=== PATIENT | female | born 1990 | race American Indian/Alaskan Native ===

== ENCOUNTER 2018-06-09 16:13 | Observation (INO) | payer MEDICAID ==
[2018-06-09] MEDS ORDERED: TORADOL IV ONE (16:50)
[2018-06-09] MEDS ORDERED: NACL 0.9% 1000 ML 1,000 ML IV ONE (16:50)
[2018-06-09] MEDS ORDERED: ZOFRAN IV ONE ×2 (16:50→21:07)
--- NOTE | 2018-06-09 16:54 | Emergency Department Report ---
Blank Doc - Documentation Documentation: Patient is a 27-year-old female who had a D&C yesterday secondary to a demise who is presenting with severe abdominal pain. Patient states is 10 out of 10 pain diffusely with pain that radiates into her arms and legs. Patient's is crying and can barely answer questions. Focused physical exam patient is tender diffusely in her abdomen with no rebound or guarding abdomen is so and appeared to be a surgical abdomen. He has a recent surgical procedure urinalysis lab work will be ordered and CT of abdomen and pelvis be done as well. Ft
[2018-06-09 17:43] LABS: Hemoglobin 13.6 gm/dl (10.1-14.3); Mean Corpuscular HGB Conc 35 % (30-34); Mean Corpuscular Hemoglobin 33 pg (28-32); Mean Corpuscular Volume 94 fl (79-97); Platelet Count 258 K/mm3 (140-440); Red Blood Count 4.14 M/mm3 (3.65-5.03); Red Cell Distribution Width 14.9 % (13.2-15.2)
[2018-06-09 17:53] LABS: BUN/Creatinine Ratio 18; Blood Urea Nitrogen 9 mg/dL (7-17); Calcium 9.5 mg/dL (8.4-10.2); Hemolysis Index 81
[2018-06-09 18:36] LABS: Band Neutrophils # (Manual) 0.3 K/mm3; Basophils % (Manual) 0 % (0.0-1.8); Total Cells Counted 100
[2018-06-09 18:38] LABS: Anisocytosis 1+; Large Platelets Few; Macrocytosis 1+; Ovalocytes Few; Platelet Estimate Consistent w Auto; Poikilocytosis 1+; Target Cells Few
--- NOTE | 2018-06-09 18:56 | Cat Scan Report ---
FINAL REPORT PROCEDURE: CT ABDOMEN PELVIS W CON TECHNIQUE: Computerized axial tomography of the abdomen and pelvis was performed after the IV injection of iodinated nonionic contrast. HISTORY: recent d c pain all over COMPARISON: No prior studies are available for comparison. FINDINGS: Lower Lung lora: Minimal dependent atelectasis visualize otherwise lung bases are clear.. Upper Abdomen: There appears to be a small fold in the fundus of the gallbladder. Gallbladder is otherwise unremarkable. The liver, the adrenal glands, the pancreas and the spleen are unremarkable. Kidneys, Ureters and Urinary bladder: No abnormalities are seen. Retroperitoneum: Abdominal aorta appears normal. Nonspecific subcentimeter lymph nodes are seen in the retroperitoneum. No pathologically enlarged lymph nodes are identified. Bowel: There appears to be mild mucosal thickening and mild prominence of the submucosal space in the transverse colon, the splenic flexure and mildly in the descending colon as well as in the right side of the colon. I cannot exclude a mild nonspecific colitis. There are few loops of small bowel seen in the right lower quadrant which also show mild mucosal mucosal thickening and mild prominence of the submucosal space. Normal-appearing appendix is seen in the right lower quadrant. No evidence of bowel obstruction. There is no ascites or free intraperitoneal gas. There is a small umbilical hernia containing adipose tissue. No herniated loops of bowel are seen. Reproductive organs: The uterus appears prominent or mildly enlarged. This may be from recent . If there is concern for retained products of conception ultrasound be recommended. No abnormal adnexal masses are seen. Other: No acute bony abnormalities are seen. There is sclerosis of the ilium adjacent to the SI joint suggesting osteitis condensans iliac. IMPRESSION: Uterus is mildly prominent or mildly enlarged which may be due to recent . If there is concern for retained products of conception ultrasound would be recommended. Mild mucosal and submucosal prominence seen in the right and left side of the colon and transverse colon. I cannot exclude a mild nonspecific colitis. There is also mild prominence of the mucosal and submucosal spaces in loops of small bowel in the right side of the abdomen. I cannot exclude additional mild nonspecific enteritis. No evidence of bowel obstruction or ascites. Bowel loops otherwise are unremarkable.
[2018-06-09 19:57] LABS: Bacteria,Urine 1+ /HPF (Negative); Bilirubin,Urine NEG (Negative); Blood,Urine LG (Negative); Color,Urine Yellow (Yellow); Mucus,Urine FEW /HPF; Protein,Urine <15 mg/dL mg/dL (Negative); Urobilinogen,Urine < 2.0 mg/dL (<2.0)
[2018-06-09] MEDS ORDERED: ZOSYN/NS 3.375GM/50ML 3.375 GM/50 ML BAG IV SCH (21:00)
[2018-06-09] MEDS ORDERED: MORPHINE IV ONE (21:07)
--- NOTE | 2018-06-09 21:07 | Emergency Department Report ---
ED General Adult HPI - General Chief complaint: Pain General Stated complaint: STOMACH PAIN/BODY Time Seen by Provider: 06/09/18 16:45 Source: patient Mode of arrival: Ambulatory Limitations: No Limitations - History of Present Illness Initial comments: 27-year-old -[place] female comes to the emergency room reporting that she is having body aches. Patient reports that she had a DNC on Monday and now states "patient's my whole body hurts including my throat." Patient reports that she had demise and was sent home went back to the hospital at [facility] and had a D&C performed. Patient reports that she was discharged with no pain medication and woke up this morning in severe pain. Patient also complains of sore throat that really hurts. Patient reports a past medical history of asthma and had 3 miscarriages. -: days(s) (1) Location: neck (throat), abdomen, pelvis Severity scale (0 -10): 7 Consistency: constant Worsens with: eating, other (following) Associated Symptoms: loss of appetite, nausea/vomiting, other (sore throat, mid to upper abdominal pain). denies: fever/chills Treatments Prior to Arrival: none - Related Data Previous Rx's Medication Instructions Recorded Last Taken Type HYDROcodone/APAP 5-325 [[place] 1 - 2 each PO Q6HR PRN #14 tablet 01/19/14 Unknown Rx 5/325 mg] Ondansetron [Zofran] 4 mg PO Q6HR PRN #12 tablet 01/19/14 Unknown Rx Famotidine [Pepcid] 20 mg PO BID #60 tablet 04/28/14 Unknown Rx Ondansetron [Zofran] 4 mg PO Q6HR PRN #30 tablet 04/28/14 Unknown Rx Vit/Iron Fum/Folic AC 1 each PO QDAY #90 tablet 04/28/14 Unknown Rx [ Vitamin Tablet] metroNIDAZOLE 0.75%(NF) [Metrogel 1 applicatio TP BID #10 tube 04/28/14 Unknown Rx 0.75%] Acetaminophen/Codeine [Tylenol #3] 1 tab PO Q6H PRN #15 tab 08/22/15 Unknown Rx Tobramycin/Dexamethasone [Tobradex 1 - 2 drop OP Q4HR #1 bottle 08/22/15 Unknown Rx Eye Drops 0.3/0.1%] Acetaminophen/Codeine [Tylenol #3] 1 tab PO Q6H PRN #20 tab 11/12/15 Unknown Rx Nitrofurantoin [place]/M-Cryst 100 mg PO Q12HR #14 capsule 11/12/15 Unknown Rx [Macrobid CAP] Allergies Allergy/AdvReac Type Severity Reaction Status Date / Time Fish Containing Products Allergy Itching Verified 06/09/18 16:15 peanut Allergy Itching Verified 06/09/18 16:15 coconut Allergy Itching Uncoded 08/22/15 16:32 ED Review of Systems ROS: Stated complaint: STOMACH PAIN/BODY Other details as noted in HPI Constitutional: denies: chills, fever ENT: throat pain Respiratory: denies: cough, shortness of breath, wheezing Cardiovascular: denies: chest pain, palpitations Endocrine: no symptoms reported Gastrointestinal: abdominal pain, nausea Genitourinary: denies: urgency, dysuria, discharge Musculoskeletal: back pain Skin: denies: rash, lesions Neurological: headache. denies: weakness, paresthesias Psychiatric: denies: anxiety, depression Hematological/Lymphatic: denies: easy bleeding, easy bruising ED Past Medical Hx - Past Medical History Hx Asthma: Yes Additional medical history: 3 miscarriages - Social History Smoking Status: Current Every Day Smoker Substance Use Type: None - Medications Home Medications: Home Medications Medication Instructions Recorded Confirmed Last Taken Type HYDROcodone/APAP 5-325 [[place] 1 - 2 each PO Q6HR PRN #14 tablet 01/19/14 Unknown Rx 5/325 mg] Ondansetron [Zofran] 4 mg PO Q6HR PRN #12 tablet 01/19/14 Unknown Rx Famotidine [Pepcid] 20 mg PO BID #60 tablet 04/28/14 Unknown Rx Ondansetron [Zofran] 4 mg PO Q6HR PRN #30 tablet 04/28/14 Unknown Rx Vit/Iron Fum/Folic AC 1 each PO QDAY #90 tablet 04/28/14 Unknown Rx [ Vitamin Tablet] metroNIDAZOLE 0.75%(NF) [Metrogel 1 applicatio TP BID #10 tube 04/28/14 Unknown Rx 0.75%] Acetaminophen/Codeine [Tylenol #3] 1 tab PO Q6H PRN #15 tab 08/22/15 Unknown Rx Tobramycin/Dexamethasone [Tobradex 1 - 2 drop OP Q4HR #1 bottle 08/22/15 Unknown Rx Eye Drops 0.3/0.1%] Acetaminophen/Codeine [Tylenol #3] 1 tab PO Q6H PRN #20 tab 11/12/15 Unknown Rx Nitrofurantoin [place]/M-Cryst 100 mg PO Q12HR #14 capsule 11/12/15 Unknown Rx [Macrobid CAP] ED Physical Exam - General Limitations: No Limitations General appearance: alert, in no apparent distress, other (Gonzalez to be uncomfortable) - Head Head exam: Present: atraumatic, normocephalic - Eye Eye exam: Present: EOMI - ENT ENT exam: Present: mucous membranes moist - Neck Neck exam: Present: normal inspection, full ROM - Respiratory Respiratory exam: Present: normal lung sounds bilaterally. Absent: respiratory distress - Cardiovascular Cardiovascular Exam: Present: regular rate, normal rhythm. Absent: systolic murmur, diastolic murmur, rubs, gallop - GI/Abdominal GI/Abdominal exam: Present: soft, tenderness, normal bowel sounds. Absent: distended - Extremities Exam Extremities exam: Present: normal inspection - Neurological Exam Neurological exam: Present: alert, oriented X3 - Psychiatric Psychiatric exam: Present: normal affect, normal mood - Skin Skin exam: Present: warm, dry, intact, normal color. Absent: rash ED Course Vital Signs 06/09/18 06/09/18 06/09/18 16:17 16:52 20:10 Temperature 98.9 F 98.7 F Pulse Rate 76 Respiratory 22 18 Rate Blood Pressure 141/76 Blood Pressure [Left] O2 Sat by Pulse Oximetry 06/09/18 06/09/18 06/10/18 21:54 23:37 01:41 Temperature 97.8 F Pulse Rate 72 Respiratory 16 18 18 Rate Blood Pressure Blood Pressure 142/72 [Left] O2 Sat by Pulse 97 Oximetry 06/10/18 03:00 Temperature 98.4 F Pulse Rate 64 Respiratory 16 Rate Blood Pressure Blood Pressure 124/72 [Left] O2 Sat by Pulse 99 Oximetry ED Medical Decision Making - Lab Data Result diagrams: 06/09/18 17:19 06/09/18 17:19 - Radiology Data Radiology results: report reviewed, image reviewed FINAL REPORT PROCEDURE: CT ABDOMEN PELVIS W CON TECHNIQUE: Computerized axial tomography of the abdomen and pelvis was performed after the IV injection of iodinated nonionic contrast. HISTORY: recent d c pain all over COMPARISON: No prior studies are available for comparison. FINDINGS: Lower Lung lora: Minimal dependent atelectasis visualize otherwise lung bases are clear.. Upper Abdomen: There appears to be a small fold in the fundus of the gallbladder. Gallbladder is otherwise unremarkable. The liver, the adrenal glands, the pancreas and the spleen are unremarkable. Kidneys, Ureters and Urinary bladder: No abnormalities are seen. Retroperitoneum: Abdominal aorta appears normal. Nonspecific subcentimeter lymph nodes are seen in the retroperitoneum. No pathologically enlarged lymph nodes are identified. Bowel: There appears to be mild mucosal thickening and mild prominence of the submucosal space in the transverse colon, the splenic flexure and mildly in the descending colon as well as in the right side of the colon. I cannot exclude a mild nonspecific colitis. There are few loops of small bowel seen in the right lower quadrant which also show mild mucosal mucosal thickening and mild prominence of the submucosal space. Normal-appearing appendix is seen in the right lower quadrant. No evidence of bowel obstruction. There is no ascites or free intraperitoneal gas. There is a small umbilical hernia containing adipose tissue. No herniated loops of bowel are seen. Reproductive organs: The uterus appears prominent or mildly enlarged. This may be from recent . If there is concern for retained products of conception ultrasound be recommended. No abnormal adnexal masses are seen. Other: No acute bony abnormalities are seen. There is sclerosis of the ilium adjacent to the SI joint suggesting osteitis condensans iliac. IMPRESSION: Uterus is mildly prominent or mildly enlarged which may be due to recent . If there is concern for retained products of conception ultrasound would be recommended. Mild mucosal and submucosal prominence seen in the right and left side of the colon and transverse colon. I cannot exclude a mild nonspecific colitis. There is also mild prominence of the mucosal and submucosal spaces in loops of small bowel in the right side of the abdomen. I cannot exclude additional mild nonspecific enteritis. No evidence of bowel obstruction or ascites. Bowel loops otherwise are unremarkable. Transcribed By: CLAUDE Dictated By: SUKHI ATKINS MD Electronically Authenticated By: SUKHI ATKINS MD Signed Date/Time: 06/09/181847 DD/ 47 TD/TT: 06/09/181847 - Medical Decision Making Patient has been evaluated by this provider fast track as well as Dr. Prieto. Patient has had IV fluids and IV antibiotics and IV pain medication and IV anti- emetics. Patient's had a CT abdomen and vaginal ultrasound Patient has been given Zosyn 3.337 mg IV. Request for hospice to evaluate for admission. Patient's been admitted. Critical care attestation.: If time is entered above; I have spent that time in minutes in the direct care of this critically ill patient, excluding procedure time. ED Disposition Clinical Impression: Colitis Abdominal pain Qualifiers: Abdominal location: upper abdomen, unspecified Qualified Code(s): R10.10 - Upper abdominal pain, unspecified Disposition: DC-09 OP ADMIT IP TO THIS HOSP Is pt being admited?: Yes Does the pt Need Aspirin: No Condition: Stable
--- NOTE | 2018-06-09 23:43 | Ultrasound Report ---
FINAL REPORT PROCEDURE: US OB < = 14 WEEKS FETUS TECHNIQUE: Real-time transabdominal sonography of the uterus, placenta, amniotic fluid, adnexa, and fetus was performed with image documentation. Measurements were obtained to determine age/size. M-mode Doppler was used to document heartbeat. CPT 28839 HISTORY: recent D C with abdominal pains. Positive test COMPARISON: Transvaginal pelvic ultrasound also performed today. FINDINGS: The report for this exam was generated utilizing images from both the transabdominal and a transvaginal ultrasound both of which were performed today. The endometrial stripe is thickened measuring up to 18.7 millimeters. There is slight heterogeneous echogenicity in the endometrial canal however I do not see evidence of an intrauterine . No uterine masses are identified. The uterus measures 10.7 x 5.1 x 7.5 centimeter. Right and left ovaries are unremarkable. No abnormal adnexal masses are seen. Right ovary measures 3.0 x 1.5 x 1.6 centimeter. The left ovary measures 2.5 x 1.0 x 1.9 centimeters. IMPRESSION: Significantly thickened endometrial stripe. There is mild heterogeneous echogenicity in the central aspect of the stripe although I do not see evidence of an intrauterine . No uterine masses are seen. The ovaries are unremarkable. Recommend correlating this finding with serial beta HCG levels and follow-up pelvic ultrasound if clinically indicated. Given the positive test and lack of an intrauterine I cannot exclude ectopic at this time.
--- NOTE | 2018-06-09 23:46 | Ultrasound Report ---
FINAL REPORT PROCEDURE: US OB TRANSVAGINAL TECHNIQUE: Real-time transvaginal sonography of the uterus, placenta, amniotic fluid, adnexa, and fetus was performed with image documentation. Measurements were obtained to determine age/size. M-mode Doppler was used to document heartbeat. CPT 79108 HISTORY: recent D C with abdominal pains. Positive urine test COMPARISON: Transabdominal OB ultrasound performed earlier today. FINDINGS: The report for this exam was generated utilizing images from both the transabdominal and a transvaginal ultrasound both of which were performed today. The endometrial stripe is thickened measuring up to 18.7 millimeters. There is slight heterogeneous echogenicity in the endometrial canal however I do not see evidence of an intrauterine . No uterine masses are identified. The uterus measures 10.7 x 5.1 x 7.5 centimeter. Right and left ovaries are unremarkable. No abnormal adnexal masses are seen. Right ovary measures 3.0 x 1.5 x 1.6 centimeter. The left ovary measures 2.5 x 1.0 x 1.9 centimeters. IMPRESSION: Significantly thickened endometrial stripe. There is mild heterogeneous echogenicity in the central aspect of the stripe although I do not see evidence of an intrauterine . No uterine masses are seen. The ovaries are unremarkable. Recommend correlating this finding with serial beta HCG levels and follow-up pelvic ultrasound if clinically indicated. Given the positive test and lack of an intrauterine I cannot exclude ectopic at this time.
[2018-06-10] MEDS ORDERED: MORPHINE IV ONE (01:31)
[2018-06-10] MEDS ORDERED: SODIUM CHLORIDE FLUSH SYRINGE 10 ML IV PRN (03:38)
[2018-06-10] MEDS ORDERED: TYLENOL PO PRN (03:38)
--- NOTE | 2018-06-10 03:38 | History and Physical Report ---
History of Present Illness Date of examination: 06/10/18 History of present illness: 27-year-old and history of depression, asthma, anxiety, recently diagnosed with cervical cancer comes to the emergency room complaining of pain all over her body, and worsening abdominal area. She woke up this morning with these symptoms. Status post D&C yesterday. Abdominal pain is in the last side which she describes as painful, constant, intensity 6/10 on radiation, cannot identify exacerbating factor, relieved with pain medication given him Review of systems Constitutional: no weight loss, chills, fever Ears, eyes, nose, mouth and throat: no nasal congestion, no nasal discharge, no sinus pressure, no vision change, no red eye. Neck: No neck pain or rigidity. Cardiovascular: no chest pain, palpitations Respiratory: no cough, shortness of breath Gastrointestinal: no hematochezia Genitourinary : no frequency , no hematuria Musculoskeletal: no joint swelling or muscle ache Integumentary: no rash, no pruritis Neurological: no parathesias, no numbness, no focal weakness Endocrine: no cold or heat intolerance, no polyuria or polydipsia Hematologic/Lymphatic: no easy bruising, no easy bleeding, no gland swelling Allergic/Immunologic: no urticaria, no angioedema. PAST MEDICAL HISTORY: depression, asthma, anxiety, cervical cancer PAST SURGICAL HISTORY: None SOCIAL HISTORY: No alcohol, no drugs, smokes cigarettes, marijuana FAMILY HISTORY: Hypertension Medications and Allergies Allergies Allergy/AdvReac Type Severity Reaction Status Date / Time Fish Containing Products Allergy Itching Verified 06/09/18 16:15 peanut Allergy Itching Verified 06/09/18 16:15 coconut Allergy Itching Uncoded 08/22/15 16:32 Home Medications Medication Instructions Recorded Confirmed Last Taken Type Ondansetron [Zofran] 4 mg PO Q6HR PRN #30 tablet 04/28/14 Unknown Rx Acetaminophen/Codeine [Tylenol 1 tab PO Q6H PRN #15 tab 08/22/15 Unknown Rx /Codeine # 3 tab] Tobramycin/Dexamethasone [Tobradex 1 - 2 drop OP Q4HR #1 bottle 08/22/15 Unknown Rx Eye Drops 0.3/0.1%] Acetaminophen/Codeine [Tylenol #3] 1 tab PO Q6H PRN #20 tab 11/12/15 Unknown Rx Famotidine [Pepcid] 20 mg PO BID #60 tablet 06/11/18 Unknown Rx HYDROcodone/APAP 5-325 [[place] 1 - 2 each PO Q6HR PRN #14 tablet 06/11/18 Unknown Rx 5-325 mg TAB] guaiFENesin/CODEINE [Robitussin AC] 5 ml PO Q6H PRN #100 ml 06/11/18 Unknown Rx Active Meds: Active Medications Piperacillin Sod/Tazobactam Sod (Zosyn/Ns 3.375gm/50ml) 3.375 gm in 50 mls @ 100 mls/hr IV Q6H FABRICE Last Admin: 06/09/18 21:53 Dose: 100 mls/hr Exam - Physical Exam Narrative exam: Gen. appearance: Patient lying in bed, no apparent distress HEENT: Normocephalic, atraumatic, pupils equally round and reactive to light, extraocular movement intact, and no sclericterus,. No JVD or thyromegaly or nodule,neck supple, no carotid bruit ,mucous membranes moist, no exudate or erythema Heart: S1, S2, regular rate and rhythm Lungs: Clear bilaterally, breathing comfortable Abdomen: Positive bowel sounds, tende on the left side, no rebound or guarding r , nondistended, no organomegaly Extremity:no edema cyanosis, clubbing Skin: no rash, dry, warm Neuro: Oriented 3, cranial nerves II-12 intact, speech is fluent, motor and sensory intact - Constitutional Vitals: Temp Pulse Resp BP Pulse Ox 97.8 F 72 18 142/72 97 06/09/18 23:37 06/09/18 23:37 06/10/18 01:41 06/09/18 23:37 06/09/18 23:37 Results - Labs CBC & Chem 7: 06/11/18 03:47 06/11/18 03:47 Labs: Abnormal lab results 06/09/18 06/09/18 06/09/18 Range/Units 17:19 17:19 19:33 WBC 12.7 H (4.5-11.0) K/mm3 MCH 33 H (28-32) pg MCHC 35 H (30-34) % Lymphocytes % (Manual) 40.0 H (13.4-35.0) % Carbon Dioxide 21 L (22-30) mmol/L Creatinine 0.5 L (0.7-1.2) mg/dL HCG, Quant (0-4) mIU/mL Ur Specific [place] 1.047 H (1.003-1.030) 06/09/18 Range/Units 22:28 WBC (4.5-11.0) K/mm3 MCH (28-32) pg MCHC (30-34) % Lymphocytes % (Manual) (13.4-35.0) % Carbon Dioxide (22-30) mmol/L Creatinine (0.7-1.2) mg/dL HCG, Quant 1863 H (0-4) mIU/mL Ur Specific [place] (1.003-1.030) - Imaging and Cardiology CT scan - abdomen: report reviewed CT scan - pelvis: report reviewed Assessment and Plan Assessment Abdominal pain, possible colitis although symptoms does not correlate Recent D&C Depression Anxiety Asthma Plan Admit to medicine Start IV fluid, IV morphine, IV Zosyn [employer] is scheduled to see the patient, DVT prophylaxis
[2018-06-10] MEDS: NACL 0.9% 1000 ML 1,000 ML IV SCH ×2 (06:37→19:55)
[2018-06-10] MEDS: ZOSYN/NS 3.375GM/50ML 3.375 GM/50 ML BAG IV SCH ×3 (06:39→19:01)
[2018-06-10] MEDS: MORPHINE IV PRN ×2 (07:09→12:34)
[2018-06-10] MEDS: LOVENOX SUB-Q SCH (09:22)
[2018-06-10] MEDS ORDERED: PERCOCET 5/325 PO PRN (11:42)
--- NOTE | 2018-06-10 12:30 | Event Note ---
Date: 06/10/18 27-year-old -[place] female was admitted this morning after she was presented to the emergency department with generalized body pain. Patient had recent D&C done. Patient denied fever. Patient complains more of epigastric pain. CT abdomen and pelvis showed slightly enlarged uterus. [facility] [employer] consulted. Patient is on IV antibiotic, pain control. Continue management per H&P.
[2018-06-10] MEDS: PROTONIX PO SCH (12:35)
[2018-06-10] MEDS: ZOFRAN IV PRN (12:35)
[2018-06-10] MEDS: SODIUM CHLORIDE FLUSH SYRINGE 10 ML IV SCH ×2 (12:42→22:11)
--- NOTE | 2018-06-10 14:14 | Consultation ---
History of Present Illness Consult date: 06/10/18 Requesting physician: MASOOD GRAVES Reason for consult: other (status post recent spontaneous with D&C) History of present illness: This is a 27-year-old black female para [id number]. Status post D&C for spontaneous at 9 weeks 5 days on 06/08/2018. Patient states she had been diagnosed approximately 1 week ago with a spontaneous . Patient states she had to be hospitalized due to anxiety attack at [facility] and spent 4 days there prior to undergoing D&C. Patient stayed that on yesterday she woke up complaining of sore throat and whole body aches. She denied any heavy vaginal bleeding. Workup in the emergency room included a day abdominal pelvic CT scan does reveal no evidence of possible uterine perforation like free air or evidence of abnormality of the pelvic organs. Pelvic ultrasound also revealed no abnormalities patient had slightly thickened endometrial consistent with the recent and no evidence of retained products of conception. Patient now without any significant vaginal bleeding and soft abdomen on exam. Patient also states she has cervical cancer but has no recollection of ever having a biopsy of her cervix and her history is more compatible with having an abnormal Pap smear during a previous prior to the one she had a D&C for 1 06/08/2018, which she has not followed up with biopsy which is needed to make a diagnosis. T Past History Past Medical History: asthma, other (depression, anxiety and bronchitis) Past Surgical History: D&C CLOTHES MODEL History: abnormal PAP smear Medications and Allergies Allergies Allergy/AdvReac Type Severity Reaction Status Date / Time Fish Containing Products Allergy Itching Verified 06/09/18 16:15 peanut Allergy Itching Verified 06/09/18 16:15 coconut Allergy Itching Uncoded 08/22/15 16:32 Home Medications Medication Instructions Recorded Confirmed Last Taken Type HYDROcodone/APAP 5-325 [[place] 1 - 2 each PO Q6HR PRN #14 tablet 01/19/14 Unknown Rx 5/325 mg] Ondansetron [Zofran] 4 mg PO Q6HR PRN #12 tablet 01/19/14 Unknown Rx Famotidine [Pepcid] 20 mg PO BID #60 tablet 04/28/14 Unknown Rx Ondansetron [Zofran] 4 mg PO Q6HR PRN #30 tablet 04/28/14 Unknown Rx Vit/Iron Fum/Folic AC 1 each PO QDAY #90 tablet 04/28/14 Unknown Rx [ Vitamin Tablet] metroNIDAZOLE 0.75%(NF) [Metrogel 1 applicatio TP BID #10 tube 04/28/14 Unknown Rx 0.75%] Acetaminophen/Codeine [Tylenol #3] 1 tab PO Q6H PRN #15 tab 08/22/15 Unknown Rx Tobramycin/Dexamethasone [Tobradex 1 - 2 drop OP Q4HR #1 bottle 08/22/15 Unknown Rx Eye Drops 0.3/0.1%] Acetaminophen/Codeine [Tylenol #3] 1 tab PO Q6H PRN #20 tab 11/12/15 Unknown Rx Nitrofurantoin [place]/M-Cryst 100 mg PO Q12HR #14 capsule 11/12/15 Unknown Rx [Macrobid CAP] Active Meds: Active Medications Acetaminophen (Tylenol) 650 mg PO Q4H PRN PRN Reason: Pain MILD(1-3)/Fever >100.5/MUNGUIA Enoxaparin Sodium (Lovenox) 40 mg SUB-Q QDAY [facility] Last Admin: 06/10/18 09:22 Dose: 40 mg Sodium Chloride (Nacl 0.9% 1000 Ml) 1,000 mls @ 75 mls/hr IV DIRECT [facility] Last Admin: 06/10/18 06:37 Dose: 75 mls/hr Piperacillin Sod/Tazobactam Sod (Zosyn/Ns 3.375gm/50ml) 3.375 gm in 50 mls @ 100 mls/hr IV Q6HR [facility] Last Admin: 06/10/18 12:34 Dose: 100 mls/hr Morphine Sulfate (Morphine) 2 mg IV Q4H PRN PRN Reason: Pain, Moderate (4-6) Last Admin: 06/10/18 12:34 Dose: 2 mg Ondansetron HCl (Zofran) 4 mg IV Q4H PRN PRN Reason: Nausea And Vomiting Last Admin: 06/10/18 12:35 Dose: 4 mg Oxycodone/Acetaminophen (Percocet 5/325) 2 tab PO Q6H PRN PRN Reason: Pain, Moderate (4-6) Pantoprazole Sodium (Protonix) 40 mg PO QDAY [facility] Last Admin: 06/10/18 12:35 Dose: 40 mg Sodium Chloride (Sodium Chloride Flush Syringe 10 Ml) 10 ml IV BID [facility] Last Admin: 06/10/18 12:42 Dose: 10 ml Sodium Chloride (Sodium Chloride Flush Syringe 10 Ml) 10 ml IV PRN PRN PRN Reason: LINE FLUSH Review of Systems Respiratory: cough Breasts: deferred Gastrointestinal: abdominal pain Genitourinary: no vaginal bleeding, no vaginal discharge - Vital Signs Vital signs: Vital Signs Temp Pulse Resp BP 98.9 F 76 22 141/76 06/09/18 16:17 06/09/18 16:17 06/09/18 16:17 06/09/18 16:17 Temp Pulse Resp BP Pulse Ox 98.3 F 57 L 20 95/62 96 06/10/18 11:53 06/10/18 05:38 06/10/18 11:53 06/10/18 11:53 06/10/18 09:51 - Physical Exam Abdomen: Positive: normal appearance, soft, tenderness, normal bowel sounds. Negative: distention, guarding Results Result Diagrams: 06/09/18 17:19 06/09/18 17:19 Abnormal lab results 06/09/18 06/09/18 06/09/18 Range/Units 17:19 17:19 19:33 WBC 12.7 H (4.5-11.0) K/mm3 MCH 33 H (28-32) pg MCHC 35 H (30-34) % Lymphocytes % (Manual) 40.0 H (13.4-35.0) % Carbon Dioxide 21 L (22-30) mmol/L Creatinine 0.5 L (0.7-1.2) mg/dL HCG, Quant (0-4) mIU/mL Ur Specific Commerce 1.047 H (1.003-1.030) 06/09/18 Range/Units 22:28 WBC (4.5-11.0) K/mm3 MCH (28-32) pg MCHC (30-34) % Lymphocytes % (Manual) (13.4-35.0) % Carbon Dioxide (22-30) mmol/L Creatinine (0.7-1.2) mg/dL HCG, Quant 1863 H (0-4) mIU/mL Ur Specific Commerce (1.003-1.030) All other labs normal. Assessment and Plan - Patient Problems (1) Anxiety Current Visit: Yes Status: Chronic Plan to address problem: Patiently recently hospitalized she says 4 days for an anxiety attack. Her symptoms on admission may be compatible with anxiety, her workup appears negative for complications of D&C or recent miscarriage. (2) Depression Current Visit: Yes Status: Chronic Plan to address problem: As per #1 we'll recommend psychiatric consult. (3) Abnormal Pap smear of cervix Current Visit: Yes Status: Acute Qualifiers: Abnormal Pap type: unspecified Qualified Code(s): R87.619 - Unspecified abnormal cytological findings in specimens from cervix uteri Plan to address problem: Patient is to follow-up as outpatient [facility]. Office information was given to patient but currently we are not accepting new patients with her insurance. (4) Abdominal pain Current Visit: Yes Status: Acute Qualifiers: Abdominal location: upper abdomen, unspecified Qualified Code(s): R10.10 - Upper abdominal pain, unspecified (5) History of spontaneous Current Visit: Yes Status: Acute Plan to address problem: No evidence of complications from previous spontaneous . No evidence of retained products. (6) Status post D&C Current Visit: Yes Status: Acute Plan to address problem: Patient without evidence of complications from a surgery. No evidence of free air and abdomen that will be seen with perforation of her uterus. No evidence of retained products. Patient without any vaginal bleeding that would be compatible with complications of the surgery. Thank you for this consultation. Will sign off on this patient please contact as her further advice as needed. I did page Dr. Graves to give report awaiting a return call
[2018-06-10 15:10] LABS: Basophils % (Auto) 0.2 % (0.0-1.8); Eosinophils # (Auto) 0.2 K/mm3 (0.0-0.4); Eosinophils % (Auto) 1.5 % (0.0-4.3); Hematocrit 40.9 % (30.3-42.9); Hemoglobin 13.7 gm/dl (10.1-14.3); Lymphocytes # (Auto) 3.9 K/mm3 (1.2-5.4); Lymphocytes % (Auto) 38.9 % (13.4-35.0); Mean Corpuscular HGB Conc 34 % (30-34); Mean Corpuscular Hemoglobin 32 pg (28-32); Mean Corpuscular Volume 96 fl (79-97); Monocytes # (Auto) 0.7 K/mm3 (0.0-0.8); Monocytes % (Auto) 7.5 % (0.0-7.3); Platelet Count 248 K/mm3 (140-440); Red Blood Count 4.28 M/mm3 (3.65-5.03); Red Cell Distribution Width 14.8 % (13.2-15.2)
[2018-06-10 15:25] LABS: BUN/Creatinine Ratio 13; Blood Urea Nitrogen 10 mg/dL (7-17); Calcium 8.7 mg/dL (8.4-10.2); Hemolysis Index 1
[2018-06-11] MEDS: ZOSYN/NS 3.375GM/50ML 3.375 GM/50 ML BAG IV SCH ×3 (00:27→11:49)
[2018-06-11 04:52] LABS: Hematocrit 36.2 % (30.3-42.9); Hemoglobin 12.2 gm/dl (10.1-14.3); Mean Corpuscular HGB Conc 34 % (30-34); Mean Corpuscular Hemoglobin 32 pg (28-32); Mean Corpuscular Volume 96 fl (79-97); Platelet Count 225 K/mm3 (140-440); Red Blood Count 3.79 M/mm3 (3.65-5.03)
[2018-06-11 05:07] LABS: BUN/Creatinine Ratio 14; Blood Urea Nitrogen 10 mg/dL (7-17); Calcium 8.2 mg/dL (8.4-10.2); Hemolysis Index 16
[2018-06-11 05:20] LABS: Basophils % (Manual) 0 % (0.0-1.8); Eosinophils % (Manual) 0 % (0.0-4.3); Total Cells Counted 100
[2018-06-11 05:21] LABS: Platelet Estimate Consistent w Auto
[2018-06-11] MEDS: NACL 0.9% 1000 ML 1,000 ML IV SCH (08:50)
[2018-06-11] MEDS: MORPHINE IV PRN (08:51)
[2018-06-11] MEDS: LOVENOX SUB-Q SCH (09:42)
[2018-06-11] MEDS: ZOFRAN IV PRN (09:42)
[2018-06-11] MEDS: PROTONIX PO SCH (09:42)
[2018-06-11] MEDS: SODIUM CHLORIDE FLUSH SYRINGE 10 ML IV SCH (09:42)
[2018-06-11 11:52] VITALS: BP 106/67
--- NOTE | 2018-06-11 12:10 | Discharge Summary ---
Providers - Providers Date of Admission: 06/10/18 03:38 Attending physician: MASOOD GRAVES MD 06/10/18 03:04 Consult to Physician [CONS] Stat Comment: recent D&C continual abdominal pain Consulting Provider: TEODORO DUARTE Physician Instructions: please consult Reason For Exam: abdominal pain recent D&C 06/11/18 07:52 Consult to Mental Health [CONS] Routine Reason For Exam: Panic attack, anxiety Place consult to:: mental health Notified:: Phone number called:: [phone] Was contact made?: Yes If yes, spoke with:: patrick Time called:: 08:18 Primary care physician: WOODEN TANK ERECTOR Hospitalization Reason for admission: Generalized pain Condition: Stable Pertinent studies: Transvaginal U/S, U/S: Significantly thickened endometrial stripe. There is mild heterogeneous echogenicity in the central aspect of the stripe although I do not see evidence of an intrauterine . No uterine masses are seen. The ovaries are unremarkable. Recommend correlating this finding with serial beta HCG levels and follow-up pelvic ultrasound if clinically indicated. Given the positive test and lack of an intrauterine I cannot exclude ectopic at this time. CT abdomen and Pelvis: Uterus is mildly prominent or mildly enlarged which may be due to recent . If there is concern for retained products of conception ultrasound would be recommended. Mild mucosal and submucosal prominence seen in the right and left side of the colon and transverse colon. I cannot exclude a mild nonspecific colitis. There is also mild prominence of the mucosal and submucosal spaces in loops of small bowel in the right side of the abdomen. I cannot exclude additional mild nonspecific enteritis. No evidence of bowel obstruction or ascites. Bowel loops otherwise are unremarkable. Hospital course: 27-year-old and history of depression, asthma, anxiety, recently diagnosed with cervical cancer comes to the emergency room complaining of pain all over her body, and worsening abdominal area. She woke up this morning with these symptoms. Status post D&C yesterday. Abdominal pain is in the last side which she describes as painful, constant, intensity 6/10 on radiation, cannot identify exacerbating factor, relieved with pain medication. Patient was admitted to the floor and was started with IV antibiotics, pain medication. Imaging was negative as stated above. INTENSIVE CARE UNIT NURSE was consulted and is normal ultrasound finding after D&C. Patient didn't have any signs of infection , and is continuing to have antibiotic. Patient's pain resolved. Patient has anxiety and depression problem and psych consulted gave her outpatient resources and discharged home. Patient is hemodynamically stable S temp discharge. Disposition: DC-01 TO HOME OR SELFCARE Time spent for discharge: 32 minutes - Discharge Diagnoses (1) Abdominal pain Status: Acute Qualifiers: Abdominal location: upper abdomen, unspecified Qualified Code(s): R10.10 - Upper abdominal pain, unspecified (2) Status post D&C Status: Acute (3) Anxiety Status: Chronic Core Measure Documentation - Palliative Care Palliative Care/ Comfort Measures: Not Applicable - Core Measures Any of the following diagnoses?: none Exam - Physical Exam Narrative exam: Not in cardiopulmonary distress. The patient appeared well nourished and normally developed. Vital signs as documented. Head exam is unremarkable. No scleral icterus . Neck is without jugular venous distension, thyromegaly, or carotid bruits. Lungs are clear to auscultation. Cardiac exam reveals regular rate and Rhythm. First and second heart sounds normal. No murmurs, rubs or gallops. Abdominal exam reveals normal bowel sounds, no masses, no organomegaly and no aortic enlargement. Extremities are nonedematous and both femoral and pedal pulses are normal. MANPOWER DEVELOPMENT ADVISOR: Alert and oriented 3. No focal weakness. - Constitutional Vitals: Temp Pulse Resp BP Pulse Ox 98.2 F 56 L 20 106/67 97 06/11/18 11:43 06/11/18 11:43 06/11/18 11:43 06/11/18 11:43 06/11/18 11:43 Plan Activity: no restrictions Weight Bearing Status: Full Weight Bearing Diet: regular Additional Instructions: Follow up at [facility] in 1-2 weeks Follow up with: PRIMARY CAREMD [Primary Care Provider] - 3-5 Days Prescriptions: RX: Famotidine [Pepcid] 20 mg PO BID #60 tablet RX: guaiFENesin/CODEINE [Robitussin AC] 5 ml PO Q6H PRN #100 ml PRN Reason: Cough RX: HYDROcodone/APAP 5-325 [[place] 5-325 mg TAB] 1 - 2 each PO Q6HR PRN #14 tablet PRN Reason: Pain
--- NOTE | 2018-06-14 14:55 | Query- Abdominal Pain ---
Kait Burns Date:___06/14/2018 Maintenance Leader/CDS:___Leatha/Irma Phone#:____[phone] Exercise your independent professional judgment when responding to this query. Questions asked do not imply that a particular answer is desired or expected. We greatly appreciate your clarification on this issue. Clinical Documentation States: 28 Year old female was admitted on 06/09/2018 for abdominal pain. The Discharge summary stated "- Discharge Diagnoses (1) Abdominal pain Status: Acute Qualifiers: Abdominal location: upper abdomen, unspecified Qualified Code(s): R10.10 - Upper abdominal pain, unspecified (2) Status post D&C Status: Acute." Please specify the etiology of Abdominal Pain: [ ]Appendicitis, Acute [ ] Intestinal Obstruction [ ]Diverticulitis, Acute [ ] Uremia [ ]Pancreatitis, Acute [ ] Thoracic Aortic Aneurysm [ ]Peritonitis [ ] Urinary Tract Infection [ ]Ulcerative Colitis [ ] Pelvic Inflammatory Disease [ ]Cholecystitis [ ] Cystitis [ ]Cholangitis [ ] Pyelonephritis [ ]Viral Gastroenteritis [ ] Renal Stones [ ]Gastroenteritis, Bacterial [ ] Retroperitoneal Infection [ ]Gastritis [ ] Shingles [ ]Peritoneal Irritation [ ] Mesenteric Artery Occlusion [ ]Peritoneal Inflammation [ ] Trauma(please specify): _ [ ]Peritoneal Infection [ ] Irritable Bowel Syndrome [ ]Constipation [ ] Hernia [ ]GERD [ ] Cholelithiasis [ ]Peptic Ulcer [ ] Vascular Insufficiency of Intestine [ ]Diabetic Ketoacidosis [ ]Cancer [ ]Other: [ x]Unable to determine [ ]Comment/Explanation: Present on Admission: [ x] Yes (Y) [ ] Clinically undeterminable (W) [ ] No(N) Please also document response in your Progress Notes and/or Discharge Summary and indicate if the condition was present on admission. NADEEM
== END 2018-06-11 13:11 | disposition home or self-care (01) ==
LOC: ED 16:13 → INTOOBSV 06-10 03:38 → 3A 06-10 03:38
PROVIDERS: ADMIT Internal Medicine; ATTEND Internal Medicine
DX: R10.10 Upper abdominal pain, unspecified (principal); R87.619 Unspecified abnormal cytological findings in specimens from cervix uteri; J45.909 Unspecified asthma, uncomplicated; F32.9 Major depressive disorder, single episode, unspecified; F41.9 Anxiety disorder, unspecified; F17.200 Nicotine dependence, unspecified, uncomplicated; Z85.41 Personal history of malignant neoplasm of cervix uteri
CPT/HCPCS: 36415; 74177; 76801; 76817; 80048; 81001; 82550; 83690; 84702; 84703; 85007; 85025; 87040; 87116; 96361; 96365; 96372; 96375; 96376; 99285; 99406; G0378; J1650; J1885; J2270; J2405; J2543; J7030; Q9967; 96374

== ENCOUNTER 2019-02-17 01:27 | Emergency (ER) | payer MEDICAID ==
[2019-02-17 00:39] LABS: Bacteria,Urine 1+ /HPF (Negative); Bilirubin,Urine NEG (Negative); Blood,Urine NEG (Negative); Color,Urine Yellow (Yellow); Mucus,Urine FEW /HPF; Protein,Urine <15 mg/dL mg/dL (Negative); RBC,Urine < 1.0 /HPF (0.0-6.0); Urobilinogen,Urine < 2.0 mg/dL (<2.0)
[~2019-02-17 01:27] MED LIST: LACTATED RINGERS 1,000 ML IV ONE; TYLENOL PO ONE
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
[2019-02-17 12:18] VITALS: BP 102/63
== END 2019-02-17 11:24 ==
LOC: ED 01:27 → TRG 01:27 → ED 01:27
DX: M54.9 Dorsalgia, unspecified (principal); Z53.21 Procedure and treatment not carried out due to patient leaving prior to being seen by health care provider
CPT/HCPCS: 76816; 81001

== ENCOUNTER 2019-02-20 09:55 | Outpatient (CLI) | payer MEDICAID ==
[2019-02-20 10:15] VITALS: BP 107/60
[2019-02-20] MEDS ORDERED: GENTAMICIN/NS 120MG/100ML 120 MG/100 ML BAG IV STA (10:45)
[2019-02-20] MEDS ORDERED: AMPICILLIN/NS 2 GM/100 ML 2 GM/100 ML BAG IV ONE (11:00)
[2019-02-20] MEDS ORDERED: BRETHINE SUB-Q SCH (11:00)
[2019-02-20] MEDS ORDERED: LACTATED RINGERS 500 ML IV ONE (11:30)
[2019-02-20] MEDS ORDERED: ROCEPHIN/NS 1 GM/50 ML 1 GM/50 ML BAG IV SCH (11:46)
--- NOTE | 2019-02-20 14:33 | Ultrasound Report ---
ULTRASOUND OB LIMITED History: Check placenta Technique: Transabdominal ultrasound with Doppler interrogation. Gestation: Single Position: Cephalic Placenta: Anterior, fundal. No evidence for abruption. Placental Grade: 0 Heart Rate: 191 BPM
== END 2019-02-20 13:45 | disposition home or self-care (01) ==
LOC: TRG 09:55
PROVIDERS: ATTEND Obstetrics & Gynecology
DX: O62.9 Abnormality of forces of labor, unspecified (principal); O99.322 Drug use complicating pregnancy, second trimester; F12.980 Cannabis use, unspecified with anxiety disorder; O99.342 Other mental disorders complicating pregnancy, second trimester; F32.9 Major depressive disorder, single episode, unspecified; Z3A.26 26 weeks gestation of pregnancy
CPT/HCPCS: 36415; 76815; 82731; 96365; 96366; J0696; J1580; J7120

== ENCOUNTER 2019-05-31 11:26 | Outpatient (CLI) | payer MEDICAID ==
--- NOTE | 2019-05-31 14:18 | Ultrasound Report ---
ULTRASOUND BIOPHYSICAL PROFILE INDICATION: well being. COMPARISON: None available. FINDINGS: heart rate is 146 beats per minute. breathing movement = 2 Gross body movement = 2 tone = 2 Qualitative amniotic fluid volume = 2 IMPRESSION: biophysical profile = 06/20 Signer Name: Gio Schilling Jr, MD Signed: 05/31/2019 2:14 PM Workstation Name: [id number]
--- NOTE | 2019-05-31 14:21 | Ultrasound Report ---
ULTRASOUND OB LIMITED HISTORY: well-being TECHNIQUE: Transabdominal ultrasound with color Doppler imaging. FINDINGS: A single intrauterine is identified in cephalic position. MARI measures 10.7 cm. H eart rate measures 145 bpm. IMPRESSION: MARI measures 10.7 cm. Signer Name: Gio Schilling Jr, MD Signed: 05/31/2019 2:17 PM Workstation Name: [id number]
[2019-05-31 16:11] VITALS: BP 108/69
== END 2019-05-31 16:44 | disposition home or self-care (01) ==
LOC: TRG 11:26
PROVIDERS: ATTEND Obstetrics & Gynecology
DX: O47.1 False labor at or after 37 completed weeks of gestation (principal); O99.513 Diseases of the respiratory system complicating pregnancy, third trimester; J45.909 Unspecified asthma, uncomplicated; Z3A.41 41 weeks gestation of pregnancy
CPT/HCPCS: 76815; 76819

== ENCOUNTER 2019-06-01 06:12 | Inpatient (IN) | payer MEDICAID ==
--- NOTE | 2019-06-01 06:21 | Emergency Department Report ---
ED HPI - General Chief complaint: New Born Assessment Stated complaint: Time Seen by Provider: 06/01/19 06:17 Source: patient, RN notes reviewed Mode of arrival: Stretcher Limitations: Physical Limitation - History of Present Illness Initial comments: This is a 28-year-old female, not known to this provider previously, history of depression, asthma, anxiety, reportedly history of cervical cancer, presenting to the emergency room after precipitous delivery out of the hospital. Apparently, the patient reports giving in her car. She does not endorse any complaints to this provider. Patient presents more than 5 minutes after delivery, therefore, scores are not able to be performed. Patient currently has a child wrapped up, and next to her. Child is breathing spontaneously does not appear to be in significant respiratory distress. Patient does not endorse any complaints at this time. A code stork Is called overhead. NICU nurses are present, and suctioning babies nasopharynx. Fighting Vehicle Infantryman, Dr. Sheehan present, and indicates patient may go to labor and delivery, and the patient's cartographic technician, Dr. Rodas, will be contacted. The patient denies physical pain to this provider, and her only complaint is just having given MD Complaint: other -: Sudden, minutes(s) Consistency: constant Improves with: none Worsens with: none :: Yes Pre-rena care: previous ultrasound confi - Related Data Previous Rx's Medication Instructions Recorded Last Taken Type Ondansetron [Zofran] 4 mg PO Q6HR PRN #30 tablet 04/28/14 Unknown Rx Acetaminophen/Codeine [Tylenol 1 tab PO Q6H PRN #15 tab 08/22/15 Unknown Rx /Codeine # 3 tab] Tobramycin/Dexamethasone [Tobradex 1 - 2 drop OP Q4HR #1 bottle 08/22/15 Unknown Rx Eye Drops 0.3/0.1%] Acetaminophen/Codeine [Tylenol #3] 1 tab PO Q6H PRN #20 tab 11/12/15 Unknown Rx Famotidine [Pepcid] 20 mg PO BID #60 tablet 06/11/18 Unknown Rx HYDROcodone/APAP 5-325 [[place] 1 - 2 each PO Q6HR PRN #14 tablet 06/11/18 Unknown Rx 5-325 mg TAB] guaiFENesin/CODEINE [Robitussin AC] 5 ml PO Q6H PRN #100 ml 06/11/18 Unknown Rx Allergies Allergy/AdvReac Type Severity Reaction Status Date / Time Fish Containing Products Allergy Itching Verified 06/09/18 16:15 peanut Allergy Itching Verified 06/09/18 16:15 coconut Allergy Itching Uncoded 08/22/15 16:32 ED Review of Systems ROS: Stated complaint: Other details as noted in HPI ED Past Medical Hx - Past Medical History Hx Hypertension: No Hx Congestive Heart Failure: No Hx Diabetes: No Hx Deep Vein Thrombosis: No Hx Renal Disease: No Hx Sickle Cell Disease: Yes (Trait) Hx Seizures: No Hx Psychiatric Treatment: (anxiety, depression) Hx Asthma: Yes Hx COPD: No Hx HIV: No Additional medical history: 3 miscarriages - Social History Smoking Status: Never Smoker - Medications Home Medications: Home Medications Medication Instructions Recorded Confirmed Last Taken Type Ondansetron [Zofran] 4 mg PO Q6HR PRN #30 tablet 04/28/14 Unknown Rx Acetaminophen/Codeine [Tylenol 1 tab PO Q6H PRN #15 tab 08/22/15 Unknown Rx /Codeine # 3 tab] Tobramycin/Dexamethasone [Tobradex 1 - 2 drop OP Q4HR #1 bottle 08/22/15 Unknown Rx Eye Drops 0.3/0.1%] Acetaminophen/Codeine [Tylenol #3] 1 tab PO Q6H PRN #20 tab 11/12/15 Unknown Rx Famotidine [Pepcid] 20 mg PO BID #60 tablet 06/11/18 Unknown Rx HYDROcodone/APAP 5-325 [[place] 1 - 2 each PO Q6HR PRN #14 tablet 06/11/18 Unknown Rx 5-325 mg TAB] guaiFENesin/CODEINE [Robitussin AC] 5 ml PO Q6H PRN #100 ml 06/11/18 Unknown Rx ED Physical Exam - General General appearance: alert, in no apparent distress - Head Head exam: Present: atraumatic, normocephalic - Eye Eye exam: Present: normal appearance, EOMI - ENT ENT exam: Present: normal exam, normal orophraynx, mucous membranes moist, normal external ear exam - Neck Neck exam: Present: normal inspection, full ROM. Absent: tenderness, meningismus - Respiratory Respiratory exam: Present: normal lung sounds bilaterally. Absent: respiratory distress - Cardiovascular Cardiovascular Exam: Present: regular rate, normal rhythm, normal heart sounds. Absent: bradycardia, tachycardia, irregular rhythm, systolic murmur, diastolic murmur, rubs, gallop - GI/Abdominal GI/Abdominal exam: Present: soft. Absent: guarding, rebound, rigid, pulsatile mass - External exam: Present: normal external exam, other (chaperoned by Pollo Espinal; cord noted coming from vagina, still attached to baby. The baby's breathing spontaneously, and is not lethargic. The baby does not appear to be in acute respiratory distress) - Extremities Exam Extremities exam: Present: normal inspection, full ROM, other (2+ pulses noted in the bilateral upper, lower extremities. Compartments soft. No long bony te nderness. The pelvis is stable.). Absent: calf tenderness - Back Exam Back exam: Present: normal inspection, full ROM - Neurological Exam Neurological exam: Present: alert, other (moving 4 extremities spontaneously. There is no facial droop. Tongue is midline.) - Psychiatric Psychiatric exam: Present: normal affect, normal mood - Skin Skin exam: Present: warm, dry, intact, normal color. Absent: rash ED Medical Decision Making - Lab Data Vital Signs 06/01/19 06/01/19 06/01/19 06:53 06:58 07:00 Temperature Pulse Rate 77 72 85 Respiratory Rate Blood Pressure O2 Sat by Pulse 100 100 87 Oximetry 06/01/19 06/01/19 06/01/19 07:03 07:05 07:08 Temperature Pulse Rate 79 78 85 Respiratory Rate Blood Pressure O2 Sat by Pulse 100 66 L 100 Oximetry 06/01/19 06/01/19 06/01/19 07:13 07:14 07:22 Temperature Pulse Rate 76 81 76 Respiratory Rate Blood Pressure 110/69 O2 Sat by Pulse 98 63 L Oximetry 06/01/19 06/01/19 06/01/19 07:27 07:32 07:37 Temperature 97.7 F Pulse Rate 76 82 78 Respiratory 18 Rate Blood Pressure O2 Sat by Pulse 98 99 99 Oximetry 06/01/19 06/01/19 06/01/19 07:42 07:47 07:48 Temperature Pulse Rate 73 83 81 Respiratory Rate Blood Pressure 105/69 O2 Sat by Pulse 99 100 Oximetry 07/20/19 07/20/19 07/20/19 07:52 07:57 08:02 Temperature Pulse Rate 74 73 73 Respiratory Rate Blood Pressure O2 Sat by Pulse 99 99 99 Oximetry 06/01/19 06/01/19 06/01/19 08:07 08:12 08:17 Temperature Pulse Rate 73 78 79 Respiratory Rate Blood Pressure O2 Sat by Pulse 99 98 99 Oximetry 06/01/19 08:18 Temperature Pulse Rate 81 Respiratory Rate Blood Pressure 108/66 O2 Sat by Pulse Oximetry - Medical Decision Making Differential diagnosis, including but not limited to: Spontaneous delivery, precipitous delivery Assessment and plan: 28-year-old female who presents to the ER after delivering in her car. She presents more than 5 minutes after , therefore, scores not performed. Mother does not appear to be in any acute distress, still has a retained placenta, and cord. Obstetrics team/pediatric team to clamp cord, and deliver further care, and maternal care. Patient going to labor and delivery for further care. Critical care attestation.: If time is entered above; I have spent that time in minutes in the direct care of this critically ill patient, excluding procedure time. ED Disposition Clinical Impression: [facility] Dis[facility] IP Is pt being admited?: Yes Does the pt Need Aspirin: No Condition: Good
[2019-06-01] MEDS: NORCO 5/325 PO PRN ×3 (08:12→21:31)
[2019-06-01] MEDS ORDERED: PITOCin/NS 20 UNIT/1000ML DRIP 20,000 MILLIUNITS/1,000 ML BAG IV ONE (08:20)
--- NOTE | 2019-06-01 09:03 | History and Physical Report ---
History of Present Illness Date of examination: 06/01/19 Date of admission: 06/01/19 06:43 Chief complaint: I had a baby History of present illness: Pt is a 28 year old who presented through the ED after a precipitous delivery in the ED. The patient reports an EDC of 05/24/19 and states she received care at [facility]. records are not available for review. Pt reports being seen at [facility] last night but was sent home. Pt reports no medical history or complications of . Past History Past Medical History: no pertinent history Past Surgical History: no surgical history Family/Genetic History: none Social history: single - Obstetrical History Expected Date of Delivery: 05/24/19 Actual Gestation: 41 Week(s) 1 Day(s) : 8 Para: 3 Number of Living Children: 3 Medications and Allergies Allergies Allergy/AdvReac Type Severity Reaction Status Date / Time Fish Containing Products Allergy Itching Verified 06/09/18 16:15 peanut Allergy Itching Verified 06/09/18 16:15 coconut Allergy Itching Uncoded 08/22/15 16:32 Home Medications Medication Instructions Recorded Confirmed Last Taken Type Ondansetron [Zofran] 4 mg PO Q6HR PRN #30 tablet 04/28/14 Unknown Rx Acetaminophen/Codeine [Tylenol 1 tab PO Q6H PRN #15 tab 08/22/15 Unknown Rx /Codeine # 3 tab] Tobramycin/Dexamethasone [Tobradex 1 - 2 drop OP Q4HR #1 bottle 08/22/15 Unknown Rx Eye Drops 0.3/0.1%] Acetaminophen/Codeine [Tylenol #3] 1 tab PO Q6H PRN #20 tab 11/12/15 Unknown Rx Famotidine [Pepcid] 20 mg PO BID #60 tablet 06/11/18 Unknown Rx HYDROcodone/APAP 5-325 [[place] 1 - 2 each PO Q6HR PRN #14 tablet 06/11/18 Unknown Rx 5-325 mg TAB] guaiFENesin/CODEINE [Robitussin AC] 5 ml PO Q6H PRN #100 ml 06/11/18 Unknown Rx Active Meds: Active Medications Acetaminophen/Hydrocodone Bitart ([place] 5/325) 2 each PO Q6H PRN PRN Reason: Pain, Moderate (4-6) Last Admin: 06/01/19 08:12 Dose: 2 each Documented by: Review of Systems All systems: negative Genitourinary: contractions - Vital Signs Vital signs: Vital Signs Pulse Pulse Ox 77 100 06/01/19 06:53 06/01/19 06:53 Temp Pulse Resp BP Pulse Ox 97.7 F 75 18 103/63 99 06/01/19 07:27 06/01/19 08:57 06/01/19 07:27 06/01/19 08:48 06/01/19 08:57 - Physical Exam Breasts: Positive: deferred Lungs: Positive: Clear to auscultation, Normal air movement Abdomen: Positive: normal appearance, soft Genitourinary (Female): Positive: normal external genitalia, normal perenium Results All other labs normal. Assessment and Plan Pt with home delivery doing well. Will deliver placenta and proceed to [facility].
--- NOTE | 2019-06-01 09:07 | Procedure Note ---
OB Delivery Note - Delivery Date of Delivery: 06/01/19 Surgeon: SHYANNE AZEVEDO Estimated blood loss: 200cc - Vaginal Delivery presentation: vertex Intrapartum events: other(please specify) (delivery in parking lot) Delivery induction: none Delivery monitor: none Route of delivery: Delivery placenta: spontaneous Episiotomy: none Delivery laceration: none - Infant A at 1 minute: 8 at 5 minutes: 9 Gender: Female (3701 grams, 8 pounds 3 ounces)
[2019-06-01 09:49] LABS: Basophils # (Auto) 0.1 K/mm3 (0.0-0.1); Basophils % (Auto) 0.4 % (0.0-1.8); Eosinophils % (Auto) 0.2 % (0.0-4.3); Hematocrit 34.7 % (30.3-42.9); Hemoglobin 11.7 gm/dl (10.1-14.3); Lymphocytes # (Auto) 1.9 K/mm3 (1.2-5.4); Lymphocytes % (Auto) 11.2 % (13.4-35.0); Mean Corpuscular HGB Conc 34 % (30-34); Mean Corpuscular Hemoglobin 30 pg (28-32); Mean Corpuscular Volume 90 fl (79-97); Monocytes # (Auto) 1.5 K/mm3 (0.0-0.8); Monocytes % (Auto) 8.9 % (0.0-7.3); Platelet Count 235 K/mm3 (140-440); Red Blood Count 3.86 M/mm3 (3.65-5.03); Red Cell Distribution Width 16.2 % (13.2-15.2)
[2019-06-01] MEDS ORDERED: MILK OF MAGNESIA PO PRN (10:40)
[2019-06-01] MEDS ORDERED: PHENERGAN PO PRN (10:40)
[2019-06-01] MEDS ORDERED: TUCKS PAD TP PRN (10:40)
[2019-06-01] MEDS ORDERED: ZOFRAN IV PRN (10:40)
[2019-06-01] MEDS ORDERED: DULCOLAX PR PRN (10:40)
[2019-06-01] MEDS ORDERED: BENADRYL PO PRN (10:40)
[2019-06-01] MEDS ORDERED: LANSINOH TP PRN (10:40)
[2019-06-01] MEDS ORDERED: SODIUM CHLORIDE FLUSH SYRINGE 10 ML IV NR (10:40)
[2019-06-01] MEDS ORDERED: TYLENOL PO PRN (10:40)
[2019-06-01] MEDS: IBUPROFEN PO SCH ×2 (11:55→18:05)
[2019-06-01 13:58] LABS: Hematocrit 30.7 % (30.3-42.9); Hemoglobin 10.8 gm/dl (10.1-14.3); Mean Corpuscular HGB Conc 35 % (30-34); Mean Corpuscular Hemoglobin 31 pg (28-32); Mean Corpuscular Volume 88 fl (79-97); Platelet Count 221 K/mm3 (140-440); Red Blood Count 3.49 M/mm3 (3.65-5.03)
[2019-06-01 15:34] LABS: Basophils % (Manual) 0 % (0.0-1.8); Eosinophils % (Manual) 0 % (0.0-4.3); Platelet Estimate Consistent w Auto; Target Cells Few; Total Cells Counted 100
[2019-06-01] MEDS: COLACE PO SCH (21:31)
[2019-06-02] MEDS: IBUPROFEN PO SCH ×5 (00:10→23:34)
[2019-06-02] MEDS: NORCO 5/325 PO PRN ×4 (03:22→23:33)
[2019-06-02] MEDS ORDERED: BOOSTRIX IM ONE (06:00)
[2019-06-02] MEDS: COLACE PO SCH (10:03)
--- NOTE | 2019-06-02 19:07 | Progress Note ---
Assessment and Plan PPD 1 s/p outside of hospital. Patient able to be discharged on tomorrow secondary to untreated positive GBS status. Continue routine care. Subjective - Subjective Date of service: 06/02/19 Interval history: Pt is a 28 year old who presented through the ED after a precipitous delivery in the ED. The patient reports an EDC of 05/24/19 and states she received care at [facility]. records are not available for review. Pt reports being seen at [facility] last night but was sent home. Pt reports no medical history or complications of . Patient reports: appetite normal, voiding normally, ambulating normally [place]: doing well Objective - Vital Signs Latest vital signs: Vital Signs Temp Pulse Resp BP BP Pulse Ox 06/02/19 16:29 97.2 F L 74 18 98/61 06/02/19 11:00 20 06/02/19 07:52 103/75 06/02/19 07:51 97.8 F 78 18 103/75 99 06/02/19 06:24 18 06/02/19 03:22 16 06/02/19 01:47 97.4 F L 76 18 122/71 100 06/02/19 00:10 18 06/01/19 21:31 18 06/01/19 20:05 98.3 F 82 18 112/74 100 Intake and Output 06/02/19 06/02/19 06/02/19 06:59 14:59 22:59 Intake Total 240 480 480 Balance 240 480 480 Intake: Oral 480 480 Intake, Free Water 240 Other: Total, Intake Amount 480 480 # Voids Void 2 - Exam Breasts: Present: deferred Cardiovascular: Present: Regular rate, Normal S1, Normal S2 Lungs: Present: Clear to auscultation, Normal air movement Abdomen: Present: normal appearance, soft, normal bowel sounds Uterus: Present: normal, firm Extremities: Present: normal Deep Tendon Reflex Grade: Normal +2
[2019-06-03] MEDS: IBUPROFEN PO SCH (05:34)
--- NOTE | 2019-06-03 07:44 | Progress Note ---
Assessment and Plan A: PPD#2 s/p precipitous at term P: Routine care. Discharge today with follow up in 4 wks with Nadia Silva Subjective - Subjective Date of service: 06/03/19 Principal diagnosis: s/p precipitous delivery Interval history: Pt without complaints. No overnight issues. Patient reports: appetite normal, voiding normally, pain well controlled, ambulating normally Street: doing well Objective - Vital Signs Latest vital signs: Vital Signs Temp Pulse Resp BP BP Pulse Ox 06/03/19 06:34 16 06/03/19 05:34 18 06/03/19 00:34 18 06/03/19 00:33 18 06/02/19 23:34 18 06/02/19 23:33 18 06/02/19 23:20 98.1 F 65 16 100/57 99 06/02/19 19:30 18 06/02/19 16:29 97.2 F L 74 18 98/61 06/02/19 11:00 20 06/02/19 07:52 103/75 06/02/19 07:51 97.8 F 78 18 103/75 99 Intake and Output 06/02/19 06/03/19 06/03/19 22:59 06:59 14:59 Intake Total 960 600 Balance 960 600 Intake: Oral 960 600 Other: Total, Intake Amount 240 240 # Voids Void 1 4 - Exam Breasts: Present: deferred Cardiovascular: Present: Regular rate Lungs: Present: Clear to auscultation Abdomen: Present: soft Uterus: Present: fundal height below umbilicus Extremities: Present: normal
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
[2019-06-03] MEDS ORDERED: IBUPROFEN PO SCH ×2 (07:48→11:00)
[2019-06-03] MEDS: COLACE PO SCH (11:07)
[2019-06-03 12:20] VITALS: BP 124/65
== END 2019-06-03 12:15 | disposition home or self-care (01) | DRG 775 ==
LOC: ED 06:12 → TRG 06:12 → EDSTATUS 06:41 → LD 06:43 → OB 10:05
PROVIDERS: ADMIT Obstetrics & Gynecology; ATTEND Obstetrics & Gynecology
PROC: 10E0XZZ Delivery of Products of Conception, External Approach (ICD-10-PCS; principal; 2019-06-01)
PROC: 3E0234Z Introduction of Serum, Toxoid and Vaccine into Muscle, Percutaneous Approach (ICD-10-PCS; 2019-06-02)
DX: O99.345 Other mental disorders complicating the puerperium (principal); O99.53 Diseases of the respiratory system complicating the puerperium; J45.909 Unspecified asthma, uncomplicated; F32.9 Major depressive disorder, single episode, unspecified; F41.9 Anxiety disorder, unspecified; Z37.0 Single live birth; Z87.891 Personal history of nicotine dependence; Z23 Encounter for immunization; Z91.010 Allergy to peanuts; Z91.013 Allergy to seafood; Z91.018 Allergy to other foods
CPT/HCPCS: 36415; 85007; 85025; 86592; 86706; 86762; 86850; 86900; 86901; 87040; 87806; 90471; 90715; G0378; J2590

== ENCOUNTER 2020-04-12 17:22 | Emergency (ER) | payer MEDICAID ==
[2020-04-12 17:41] VITALS: BP 109/64
--- NOTE | 2020-04-12 18:36 | Emergency Department Report ---
Chief Complaint: Extremity Injury, Upper Stated Complaint: HAND LAC Time Seen by Provider: 04/12/20 18:28 - HPI History of Present Illness: 29-year-old -Bangl[place] female presents to the emergency room complaining of right index finger pain for 3 months. She reports that she has small scratches on her left hand secondary to putting her hand through a glass door last night. She also reports that she had chest pain 2 weeks ago. Patient reports that she cleaned her hand off with water and peroxide. Patient denies any fever chills no shortness of breath no active bleeding. - Exam Vital Signs: Vital Signs 04/12/20 17:41 Temperature 98.7 F Pulse Rate 87 Respiratory 14 Rate Blood Pressure 109/64 [Right] O2 Sat by Pulse 100 Oximetry MSE screening note: Focused history and physical exam performed. Due to findings the following was ordered: 29-year-old -Banglades[place] female presents to the emergency room complaining of right index finger pain for 3 months. She reports that she has small scratches on her left hand secondary to putting her hand through a glass door last night. She also reports that she had chest pain 2 weeks ago. Patient reports that she cleaned her hand off with water and peroxide. Patient denies any fever chills no shortness of breath no active bleeding. Discussed with patient that her right index finger is 3 months history that she can follow-up with her primary care provider. Discussed with her her scratches on her left hand shows no signs of infection they are not deep that she can keep them clean and put a Band-Aid on them. Discussed with patient that she had upper chest pain 2 weeks ago no pain right now she can follow-up with her primary care provider. Patient has no risk of loss of limb or or . These can all be followed up by her primary care provider. ED Disposition for MSE Disposition: Z-07 MED SCREENING EXAM-LEFT Is pt being admited?: No Does the pt Need Aspirin: No Condition: Stable Additional Instructions: You need to follow-up with a primary care provider. Referrals: [facility] [Provider Group] - 3-5 Days [facility] [Outside] - 3-5 Days [facility] [Outside] - 3-5 Days
== END 2020-04-12 18:45 | disposition left against medical advice (07) ==
LOC: ED 17:22
DX: S61.210A Laceration without foreign body of right index finger without damage to nail, initial encounter (principal); Z91.013 Allergy to seafood; Z91.010 Allergy to peanuts; Z91.018 Allergy to other foods; W25.XXXA Contact with sharp glass, initial encounter; Y93.89 Activity, other specified; Y92.89 Other specified places as the place of occurrence of the external cause; Y99.8 Other external cause status
CPT/HCPCS: 99281

== ENCOUNTER 2020-09-20 11:14 | Emergency (ER) | payer OTHER, MEDICAID ==
[2020-09-20 11:28] VITALS: BP 125/32
[2020-09-20] MEDS ORDERED: IBUPROFEN 800 MG TAB PO ONE (11:59)
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
== END 2020-09-20 13:18 | disposition home or self-care (01) ==
LOC: ED 11:14
DX: S39.012A Strain of muscle, fascia and tendon of lower back, initial encounter (principal); S13.4XXA Sprain of ligaments of cervical spine, initial encounter; K21.9 Gastro-esophageal reflux disease without esophagitis; M13.88 Other specified arthritis, other site; G43.909 Migraine, unspecified, not intractable, without status migrainosus; J45.909 Unspecified asthma, uncomplicated; F17.200 Nicotine dependence, unspecified, uncomplicated; Z98.51 Tubal ligation status; Z79.899 Other long term (current) drug therapy; Z91.013 Allergy to seafood; Z91.010 Allergy to peanuts; Z91.018 Allergy to other foods; V89.2XXA Person injured in unspecified motor-vehicle accident, traffic, initial encounter; Y93.89 Activity, other specified; Y92.410 Unspecified street and highway as the place of occurrence of the external cause; Y99.8 Other external cause status
CPT/HCPCS: 72040; 72100

== ENCOUNTER 2022-03-05 20:54 | Emergency (ER) | payer MEDICAID ==
[2022-03-05] MEDS ORDERED: oxyCODONE /ACETAMINOPHEN 5-325MG TAB PO ONE (22:13)
[2022-03-05] MEDS ORDERED: IBUPROFEN 600 MG TAB PO ONE (22:13)
[2022-03-05] MEDS ORDERED: ONDANSETRON 4 MG ODT TAB PO ONE (22:13)
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
--- NOTE | 2022-03-05 23:26 | Vascular Lab Report ---
DUPLEX DOPPLER LOWER EXTREMITY VEINS, LEFT INDICATION / CLINICAL INFORMATION: Left calf pain and swelling. TECHNIQUE: Duplex doppler imaging was performed through the veins of the left lower extremity using v enous compression and other maneuvers. COMPARISON: None available. FINDINGS: LEFT COMMON FEMORAL VEIN: Negative. LEFT FEMORAL VEIN: Negative. LEFT POPLITEAL VEIN: Negative. LEFT CALF VEINS: Negative. ADDITIONAL FINDINGS: None. IMPRESSION: 1. No sonographic evidence for DVT in the left lower extremity. Signer Name: Bhanu Nuñez MD Signed: 03/05/2022 11:22 PM Workstation Name: [id number]
--- NOTE | 2022-03-06 00:32 | Emergency Department Report ---
ED Lower Extremity HPI - General Chief Complaint: Extremity Injury, Lower Stated Complaint: LEFT LEG PAIN Source: patient Mode of arrival: Ambulatory Limitations: No Limitations - History of Present Illness Initial Comments: Patient is a 31-year-old -[place] female with a history of chronic osteoarthritis, migraine headaches and asthma who presents to the ED with compla int of acute onset persistent severe left lower leg pain and swelling with diffuse ecchymosis after her 9-year-old son slipped and fell off and landed on her left lower leg 2 days ago. Patient states that the swelling and the pain have worsened in the last 24 hours such that she is unable to bear weight on the left leg because of pain. Patient denies shortness of breath, dizziness, syncope, chest pain, fever, chills, fall, back pain, hip pain, nausea and vomiting or lightheadedness. MD Complaint: leg injury (LEFT LOWER LEG PAIN, SWELLING), other (LEFT LOWER LEG ECCHYMOSIS) -: Gradual, days(s) (2) Injury: Leg: Left (Left lower leg pain and swelling) Type of Injury: blunt Place: home Severity: severe Severity scale (0 -10): 8 Improves With: rest Worsens With: weight bearing, movement, palpation Context: direct blow Associated Symptoms: swelling, able to partially bear weight. denies: numbness, tingling, unable to bear weight, ambulatory - Related Data Home Medications Medication Instructions Recorded Confirmed Last Taken Fluticasone Propionate [Flovent 2 puff IH Q12H PRN 08/06/19 08/06/19 Unknown Hfa] Previous Rx's Medication Instructions Recorded Last Taken Type HYDROcodone/APAP 5-325 [[place] 1 each PO Q6HR PRN #20 tablet 08/07/19 Unknown Rx 5/325] Cyclobenzaprine [Flexeril] 10 mg PO QHS PRN #10 tablet 09/20/20 Unknown Rx Naproxen 500 mg PO Q12H PRN #12 tablet 09/20/20 Unknown Rx Ibuprofen [Motrin 800 MG tab] 800 mg PO Q8HR PRN #60 tablet 03/06/22 Unknown Rx methOCARBAMOL [Robaxin TAB] 750 mg PO Q8H PRN #30 tab 03/06/22 Unknown Rx traMADoL [Ultram] 50 mg PO Q6HR PRN #12 tablet 04/24/22 Unknown Rx Allergies Allergy/AdvReac Type Severity Reaction Status Date / Time Fish Containing Products Allergy Itching Verified 08/06/19 11:09 peanut Allergy Itching Verified 08/06/19 11:09 coconut Allergy Itching Uncoded 08/22/15 16:32 ED Review of Systems ROS: Stated complaint: LEFT LEG PAIN Other details as noted in HPI Constitutional: denies: chills, fever Eyes: denies: eye pain, eye discharge, vision change ENT: denies: ear pain, throat pain Respiratory: denies: cough, shortness of breath, wheezing Cardiovascular: denies: chest pain, palpitations Endocrine: no symptoms reported Gastrointestinal: denies: abdominal pain, nausea, diarrhea Genitourinary: denies: urgency, dysuria, discharge Musculoskeletal: joint swelling (Left lower leg swelling), arthralgia (Left lower leg pain and swelling). denies: back pain Skin: other (Left lower leg ecchymosis). denies: rash, lesions Neurological: denies: headache, weakness, paresthesias Psychiatric: denies: anxiety, depression Hematological/Lymphatic: denies: easy bleeding, easy bruising ED Past Medical Hx - Past Medical History Hx Hypertension: No Hx Congestive Heart Failure: No Hx Diabetes: No Hx Deep Vein Thrombosis: No Hx GERD: Yes Hx Liver Disease: No Hx Renal Disease: No Hx Arthritis: Yes (Hands) Hx Headaches / Migraines: Yes (Migraines) Hx Psychiatric Treatment: (anxiety, depression) Hx Asthma: Yes (last inhaler 1 month ago) Hx HIV: No Additional medical history: 3 miscarriages - Surgical History Additional Surgical History: tubiligation - Social History Smoking Status: Current Every Day Smoker Substance Use Type: None - Medications Home Medications: Home Medications Medication Instructions Recorded Confirmed Last Taken Type Fluticasone Propionate [Flovent 2 puff IH Q12H PRN 08/06/19 08/06/19 Unknown History Hfa] HYDROcodone/APAP 5-325 [[place] 1 each PO Q6HR PRN #20 tablet 08/07/19 Unknown Rx 5/325] Cyclobenzaprine [Flexeril] 10 mg PO QHS PRN #10 tablet 09/20/20 Unknown Rx Naproxen 500 mg PO Q12H PRN #12 tablet 09/20/20 Unknown Rx Ibuprofen [Motrin 800 MG tab] 800 mg PO Q8HR PRN #60 tablet 03/06/22 Unknown Rx methOCARBAMOL [Robaxin TAB] 750 mg PO Q8H PRN #30 tab 03/06/22 Unknown Rx traMADoL [Ultram] 50 mg PO Q6HR PRN #12 tablet 03/06/22 Unknown Rx ED Physical Exam - General Limitations: No Limitations General appearance: alert, in no apparent distress - Head Head exam: Present: atraumatic, normocephalic, normal inspection - Eye Eye exam: Present: normal appearance, PERRL, EOMI Pupils: Present: normal accommodation - ENT ENT exam: Present: normal exam, normal orophraynx, mucous membranes moist, TM's normal bilaterally, normal external ear exam - Neck Neck exam: Present: normal inspection, full ROM. Absent: tenderness, lymphadenopathy - Respiratory Respiratory exam: Present: normal lung sounds bilaterally. Absent: respiratory distress, wheezes, rales, stridor, chest wall tenderness, accessory muscle use, decreased breath sounds, prolonged expiratory - Cardiovascular Cardiovascular Exam: Present: regular rate, normal rhythm, normal heart sounds. Absent: systolic murmur, diastolic murmur, rubs, gallop - GI/Abdominal GI/Abdominal exam: Present: soft, normal bowel sounds. Absent: tenderness, guarding, rebound, hyperactive bowel sounds, hypoactive bowel sounds, organomegaly - Extremities Exam Extremities exam: Present: normal inspection, full ROM, tenderness (Palpable left lower leg tenderness with swelling and ecchymosis), normal capillary refill, calf tenderness (Left calf tenderness and swelling) - Back Exam Back exam: Present: normal inspection, full ROM. Absent: tenderness, CVA tenderness (R), CVA tenderness (L), muscle spasm, paraspinal tenderness, vertebral tenderness - Neurological Exam Neurological exam: Present: alert, oriented X3, CN II-XII intact, normal gait, reflexes normal - Psychiatric Psychiatric exam: Present: normal affect, normal mood, anxious - Skin Skin exam: Present: warm, dry, intact, normal color, ecchymosis (Left lower leg and calf ecchymosis). Absent: rash ED Course Vital Signs 03/05/22 21:09 Temperature 98.3 F Pulse Rate 93 H Respiratory 16 Rate Blood Pressure 147/71 O2 Sat by Pulse 100 Oximetry ED Lower Extremity MDM - Radiology Data Radiology results: report reviewed, image reviewed [facility] [address] [place] [address] XRay Report Signed Patient: TOBI LAWS MR#: [id number] : 1990 Acct:[id number] Age/Sex: 31 / F ADM Date: 03/05/22 Loc: ED Attending Dr: Ordering Physician: JOCELIN MCCURDY Date of Service: 03/05/22 Procedure(s): XR tibia fibula 2V LT Accession Number(s): [id number] cc: JOCELIN MCCURDY Fluoro Time In Minutes: LEFT TIBIA/FIBULA 4 VIEWS INDICATION / CLINICAL INFORMATION: Left leg pain/injury COMPARISON: None available. FINDINGS: BONES and JOINT(S): No acute fracture or subluxation. No significant arthritis. SOFT TISSUES: No significant abnormality. ADDITIONAL FINDINGS: None. IMPRESSION: 1. No acute findings. Signer Name: Bhanu Nuñez MD Signed: 03/05/2022 10:36 PM Workstation Name: [id number] Transcribed By: MN Dictated By: Bhanu Nuñez MD Electronically Authenticated By: Bhanu Nuñez MD Signed Date/Time: 03/05/222235 DD/ 34 TD/TT: [facility] [address] [place] [address] Vascular Lab Report Signed Patient: TOBI LAWS MR#: [id number] : 1990 Acct:[id number] Age/Sex: 31 / F ADM Date: 03/05/22 Loc: ED Attending Dr: Ordering Physician: JOCELIN MCCURDY Date of Service: 03/05/22 Procedure(s): VL venous duplex LE LT Accession Number(s): [id number] cc: JOCELIN MCCURDY DUPLEX DOPPLER LOWER EXTREMITY VEINS, LEFT INDICATION / CLINICAL INFORMATION: Left calf pain and swelling. TECHNIQUE: Duplex doppler imaging was performed through the veins of the left lower extremity using venous compression and other maneuvers. COMPARISON: None available. FINDINGS: LEFT COMMON FEMORAL VEIN: Negative. LEFT FEMORAL VEIN: Negative. LEFT POPLITEAL VEIN: Negative. LEFT CALF VEINS: Negative. ADDITIONAL FINDINGS: None. IMPRESSION: 1. No sonographic evidence for DVT in the left lower extremity. Signer Name: Bhanu Nuñez MD Signed: 03/05/2022 11:22 PM Workstation Name: [id number] Transcribed By: VIPUL Dictated By: Bhanu Nuñez MD Electronically Authenticated By: Bhanu Nuñez MD Signed Date/Time: 03/05/222321 DD/ 20 TD/TT: - Medical Decision Making This is a 31-year-old -[place] female with a history of chronic osteoarthritis, migraine headaches and asthma who presents to the ED with complaint of acute onset persistent severe left lower leg pain and swelling with diffuse ecchymosis after her 9-year-old son slipped and fell off and landed on her left lower leg 2 days ago. Patient states that the swelling and the pain have worsened in the last 24 hours such that she is unable to bear weight on the left leg because of pain. In the ED, patient is alert and oriented x3 and is not in any distress. Patient was treated for pain in the ED. Doppler left lower leg ultrasound showed no sonographic evidence of DVT. Left tib-fib x-ray showed no acute fractures and subluxations. On reevaluation, patient's pain is well controlled medication. Patient will discharge home on crutches and pain medications and advised to follow-up with her primary care physician in 7 to 10 days for reevaluation or return to the ED immediately if symptoms get worse. - Differential Diagnosis Muscle strain; DVT; tib-fib fracture; muscle spasm; leg contusion Critical care attestation.: If time is entered above; I have spent that time in minutes in the direct care of this critically ill patient, excluding procedure time. ED Disposition Clinical Impression: Contusion of left lower leg, initial encounter Muscle strain of left lower extremity Qualifiers: Encounter type: initial encounter Qualified Code(s): S86.912A - Strain of unspecified muscle(s) and tendon(s) at lower leg level, left leg, initial encounter Disposition: HOME / SELF CARE / HOMELESS Is pt being admited?: No Does the pt Need Aspirin: No Condition: Stable Instructions: Muscle Strain, [id number], Contusion, [id number] Additional Instructions: The tib-fib x-ray showed no acute fractures or subluxations. The Doppler lower extremity ultrasound showed no sonographic evidence of DVT. Your injuries are likely musculoskeletal. Therefore take medication with food, drink plenty of fluids and follow-up with your primary care physician in 7 to 10 days for reevaluation. Return to the ED immediately if symptoms get worse. Prescriptions: Ibuprofen [Motrin 800 MG tab] 800 mg PO Q8HR PRN #60 tablet PRN Reason: pain methOCARBAMOL [Robaxin TAB] 750 mg PO Q8H PRN #30 tab PRN Reason: Muscle Spasm traMADoL [Ultram] 50 mg PO Q6HR PRN #12 tablet PRN Reason: Pain Referrals: [facility] [Provider Group] - 7-10 days Forms: Work/School Release Form(ED) Time of Disposition: 00:35 Print Language: INDONESIAN
[2022-03-06 01:02] VITALS: BP 142/73
== END 2022-03-06 01:31 | disposition home or self-care (01) ==
LOC: ED 20:54
DX: S86.912A Strain of unspecified muscle(s) and tendon(s) at lower leg level, left leg, initial encounter (principal); S80.12XA Contusion of left lower leg, initial encounter; Z91.013 Allergy to seafood; Z91.018 Allergy to other foods; Z91.010 Allergy to peanuts; W19.XXXA Unspecified fall, initial encounter; Y93.89 Activity, other specified; Y92.89 Other specified places as the place of occurrence of the external cause; Y99.8 Other external cause status
CPT/HCPCS: 99284; J3490; Q0162